=== PATIENT | female | born 1985 | race African-American/Black ===

== ENCOUNTER 2019-02-19 23:26 | Emergency (ER) | payer BC, MEDICAID, OTHER ==
[2019-02-20] MEDS ORDERED: DEXAMETHASONE SOD PHOS INJ 10 MG/1 ML VIAL IM ONE (03:53)
[2019-02-20] MEDS ORDERED: CEPHALEXIN 500 MG CAPSULE PO ONE (03:53)
--- NOTE | 2019-02-20 03:56 | ER Document Report ---
ED General - General Chief Complaint: Insect Bite Stated Complaint: BITE, LEG SWELLING AND BLISTERING Time Seen by Provider: 02/20/19 03:27 Notes: Patient is a 33-year-old female presents with complaint of a insect bite in her left thigh. States she was bit yesterday. She says was bit 3 times in the same area. In the last couple of hours it became swollen and caused what appears to be a large hive of an area of inflammation around the bites. She says is very pruritic. No fevers. No other complaints at this time. TRAVEL OUTSIDE OF THE [place] IN LAST 30 DAYS: No Past Medical History - Social History Smoking Status: Current Every Day Smoker Frequency of alcohol use: Occasional Drug Abuse: None Family History: Reviewed & Not Pertinent Patient has suicidal ideation: No Patient has homicidal ideation: No Renal/ Medical History: Denies: Hx Peritoneal Dialysis Review of Systems - Review of Systems Notes: My Normal Review Basic REVIEW OF SYSTEMS: CONSTITUTIONAL : Denies fever, chills, or sweats. Denies recent illness. RESPIRATORY: Denies cough, cold, or chest congestion. Denies shortness of breath, difficulty breathing, or wheezing. GASTROINTESTINAL: Denies abdominal pain. Denies nausea, vomiting, or diarrhea. MUSCULOSKELETAL: Denies neck or back pain or joint pain or swelling. SKIN: Skin reaction on left lateral thigh. NEUROLOGICAL: Denies sensory or motor loss. ALL OTHER SYSTEMS REVIEWED AND NEGATIVE. Physical Exam - Vital signs Vitals: Temp Pulse Resp BP Pulse Ox 98 F 73 20 137/84 H 97 02/20/19 00:08 02/20/19 00:08 02/20/19 00:08 02/20/19 00:08 02/20/19 00:08 - Notes Notes: General Appearance: Well nourished, alert, cooperative, no acute distress, no obvious discomfort. Vitals: reviewed, See vital signs table. Extremities: strength 5/5 in all extremities, good pulses in all extremities, no swelling or tenderness in the extremities, no edema. Skin: Patient has appears to be an area of bug bite surrounded by a large area of superficial swelling is well demarcated consistent with a localized allergic reaction. There is very pruritic. There is some serosanguineous drainage from the area due to the edema of the skin. The entire area is approximately 10 cm across in diameter. No fluctuance. Bedside ultrasound shows no underlying fluid pocket. Neuro: speech clear, oriented x 3, normal affect, responds appropriately to questions. Course - Re-evaluation Re-evalutation: 02/20/19 07:26 Patient is well-appearing. Looks like she has a localized allergic reaction. She does have some serosanguineous drainage. She has been scratching it. May be some increased erythema right at the center where the bites are. I am not convinced there is secondary infection however she has been scratching and there is is increased erythema and therefore I think is better air on the side of caution placed on Keflex. Patient is agreeable with this. I did give her a shot of Decadron. I encouraged her to take Benadryl for the itching. I encouraged her return to ER if she has spreading redness, increasing swelling, fevers, or if she has any further concerns. Patient agrees with plan and will be discharged home. Dictation of this chart was performed using voice recognition software; therefore, there may be some unintended grammatical errors. - Vital Signs Vital signs: Temp Pulse Resp BP Pulse Ox 97.7 F 72 16 123/59 L 98 02/20/19 04:27 02/20/19 04:27 02/20/19 04:27 02/20/19 04:27 02/20/19 04:27 Discharge - Discharge Clinical Impression: Insect bite Qualifiers: Encounter type: initial encounter Site of insect bite: thigh Laterality: left Qualified Code(s): S70.362A - Insect bite (nonvenomous), left thigh, initial encounter Condition: Good Disposition: HOME, SELF-CARE Additional Instructions: Please follow up with your doctor in Saturday for reevaluation. Please take 25mg of Benadryl every 6 hours as needed for itching. I have prescribed and antibiotic called Keflex to help treat any secondary infection. Please return to the ER if you have spreading redness, fevers, increasing swelling, or have any further concerns. Prescriptions: RX: Cephalexin Monohydrate [Keflex 500 mg Capsule] 500 mg PO BID #9 capsule Forms: Return to Work
[2019-02-20 04:29] VITALS: BP 123/59
== END 2019-02-20 04:40 | disposition home or self-care (01) ==
LOC: ER 23:26
DX: S70.362A Insect bite (nonvenomous), left thigh, initial encounter (principal); W57.XXXA Bitten or stung by nonvenomous insect and other nonvenomous arthropods, initial encounter; F17.200 Nicotine dependence, unspecified, uncomplicated
CPT/HCPCS: 99281; 96372; J1100

== ENCOUNTER 2019-04-12 06:54 | Emergency (ER) | payer BC ==
--- NOTE | 2019-04-12 09:30 | ER Document Report ---
ED General - General Chief Complaint: Breathing Difficulty Stated Complaint: SHORTNESS OF BREATH Time Seen by Provider: 04/12/19 09:28 TRAVEL OUTSIDE OF THE [place] IN LAST 30 DAYS: No - HPI Notes: 34-year-old female to the emergency department with complaints of upper back pain and shortness of breath that began yesterday. She states that every time she tries to take her breath she has intense pain in her back. As a result of this she is been taking small shallow breaths to avoid her back pain hurting her. 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 She denies any chest pain. She denies any cough she denies any leg swelling. She does not have a history of hypertension, diabetes, or hyperlipidemia. She does not have a history of asthma. She has not been running a fever or having chills, nasal congestion, nasal discharge. She has not been recently traveling. She denies unilateral leg swelling. She denies calf pain. She denies oral contraceptive use. She denies history of DVTs. She denies any family history of coagulopathies. Past Medical History - General Information source: Patient - Social History Smoking Status: Never Smoker Frequency of alcohol use: None Drug Abuse: None Family History: Reviewed & Not Pertinent Renal/ Medical History: Denies: Hx Peritoneal Dialysis Review of Systems - Review of Systems Constitutional: denies: Chills, Fever EENT: No symptoms reported Cardiovascular: denies: Chest pain, Dyspnea, Syncope, Dizziness, Lightheaded Respiratory: See HPI, Hurts to breathe, Short of breath. denies: Cough Gastrointestinal: denies: Abdominal pain, Diarrhea, Nausea, Vomiting Musculoskeletal: See HPI, Back pain Physical Exam - Vital signs Vitals: Temp Pulse Resp BP Pulse Ox 98 F 70 22 H 139/85 H 98 04/12/19 06:57 04/12/19 06:57 04/12/19 06:57 04/12/19 06:57 04/12/19 06:57 Interpretation: Hypertensive - General General appearance: Appears well, Alert In distress: None - HEENT Head: Normocephalic, Atraumatic Eyes: Normal Pupils: PERRL - Respiratory Respiratory status: No respiratory distress Chest status: Nontender Breath sounds: Decreased air movement - Decreased air movement throughout mainly because patient is splinting against pain every time she takes a big inspiration.. No: Rales, Rhonchi, Stridor, Wheezing Chest palpation: Normal - Cardiovascular Rhythm: Regular Heart sounds: Normal auscultation Murmur: No - Abdominal Inspection: Normal Distension: No distension Bowel sounds: Normal Tenderness: Nontender Organomegaly: No organomegaly - Back Back: Tender - There is focal tenderness to palpation of the left upper back just on the medial aspect of the scapula and going under it. There is no crepitus or step-off. There is no skin findings. There is no midline tenderness to palpation of the cervical, thoracic, or lumbar spine.. No: CVA tenderness, Vertebra tenderness - Extremities General upper extremity: Normal inspection, Normal ROM, Normal strength, Normal temperature General lower extremity: Normal inspection, Normal ROM, Normal strength, Normal temperature, Michelle's sign - Neurological Neuro grossly intact: Yes Cognition: Normal Orientation: AAOx4 [place] Coma Scale Eye Opening: Spontaneous Loc Coma Scale Verbal: Oriented Loc Coma Scale Motor: Obeys Commands [place] Coma Scale Total: 15 Speech: Normal Motor strength normal: LUE, RUE, LLE, RLE Sensory: Normal - Psychological Associated symptoms: Normal affect, Normal mood - Skin Skin Temperature: Warm Skin Moisture: Dry Skin Color: Normal Course - Re-evaluation Re-evalutation: 04/12/19 11:44 Chest X-Ray 04/12/19 09:29 IMPRESSION: NO ACUTE RADIOGRAPHIC FINDING IN THE CHEST. Impression: Left upper back strain which is causing patient to take shallow breaths and splint against the pain giving her shortness of breath. She has a reassuring EKG. Her chest x-ray is negative. She is not hypoxic. She is not tachycardic. She is PERC negative. Low suspicion for ACS or ED. She has reproducible pain on exam. Will send home with Lidoderm patch, small amount of Ultram, and Robaxin. We will also send home with incentive spirometer. Have encouraged her to return if worsening pain, shortness of breath, chest pain, passing out, fevers, or any other complaints. She agrees with the plan will have her follow with her primary care physician this week. Pain has improved from a 5 out of 5 down to 3 out of 5 after injection of Toradol. - Vital Signs Vital signs: Temp Pulse Resp BP Pulse Ox 98 F 70 22 H 139/85 H 98 04/12/19 06:57 04/12/19 06:57 04/12/19 06:57 04/12/19 06:57 04/12/19 06:57 - Diagnostic Test Radiology reviewed: Image reviewed, Reports reviewed - EKG Interpretation by Me EKG shows normal: Sinus rhythm Rate: Normal Rhythm: NSR Additional EKG results interpreted by me: 04/12/19 11:45 Initial EKG shows a rate of 54 with a sinus arrhythmia. There are no T wave depressions or ST elevations. Repeat EKG has a rate of 65 inches sinus rhythm with arrhythmia. Again there is no ST elevation or T wave inversion. There is no evidence on either EKG for STEMI. QTc is 400. Discharge - Discharge Clinical Impression: Shortness of breath, Elevated blood pressure reading Muscle strain of left upper back Qualifiers: Encounter type: initial encounter Qualified Code(s): S29.012A - Strain of muscle and tendon of back wall of thorax, initial encounter Condition: Stable Disposition: HOME, SELF-CARE Instructions: Upper Back Strain ([facility]) Additional Instructions: Use incentive spirometer as directed. Take medicines as prescribed. May apply heat to the upper back for 20 minutes at a time 3 times a day. Follow-up with primary care without fail this week. Rest at home for the next few days with no lifting greater than a gallon of milk. Return immediately if any worsening shortness of breath, worsening back pain, fevers, chest pain, passing out, or an y other concerns. Prescriptions: Lidocaine [Lidoderm 5% (700 mg) Transdermal Patch] 1 patch TP DAILY #30 adh..patch Methocarbamol [Robaxin 500 mg Tablet] 500 mg PO QID #20 tablet Tramadol HCl [Ultram 50 mg Tablet] 50 mg PO Q6H PRN #9 tab PRN Reason: Forms: Return to Work Referrals: ARNOLDO ROBERTS FNP [Primary Care Provider] - Follow up in 3-5 days
[2019-04-12] MEDS ORDERED: KETOROLAC TROMETHAMINE 60 MG/2 ML SDV IM ONE (09:37)
--- NOTE | 2019-04-12 10:13 | RADIOLOGY REPORT (SQ) ---
EXAM DESCRIPTION: CHEST 2 VIEWS COMPLETED DATE/TIME: 04/12/2019 9:48 am REASON FOR STUDY: chest congestion, SOB COMPARISON: None. EXAM PARAMETERS: NUMBER OF VIEWS: two views TECHNIQUE: Digital Frontal and Lateral radiographic views of the chest acquired. RADIATION DOSE: NA LIMITATIONS: none FINDINGS: LUNGS AND PLEURA: No opacities, masses or pneumothorax. No pleural effusion. MEDIASTINUM AND HILAR STRUCTURES: No masses or contour abnormalities. HEART AND VASCULAR STRUCTURES: Heart normal size. No evidence for failure. BONES: No acute findings. HARDWARE: None in the chest. OTHER: No other significant finding. IMPRESSION: NO ACUTE RADIOGRAPHIC FINDING IN THE CHEST. TECHNICAL DOCUMENTATION: JOB ID: [id number] 2023 [employer]- All Rights Reserved Reading location - IP/workstation name: PATIENT CARE [email or web address]
[2019-04-12] MEDS ORDERED: METHOCARBAMOL 500 MG TABLET PO ONE (11:39)
[2019-04-12] MEDS ORDERED: TRAMADOL HCL 50 MG TABLET PO ONE (11:39)
[2019-04-12 12:35] VITALS: BP 119/71
--- NOTE | 2019-04-13 00:16 | EKG REPORT ---
SEVERITY:- OTHERWISE NORMAL ECG - SINUS ARRHYTHMIA, RATE 46-62 : Confirmed by: Adelita Boyce MD 13-Apr-2019 00:15:42
--- NOTE | 2019-04-13 00:17 | EKG REPORT ---
SEVERITY:- NORMAL ECG - SINUS RHYTHM : Confirmed by: Adelita Boyce MD 13-Apr-2019 00:15:38
== END 2019-04-12 12:46 | disposition home or self-care (01) ==
LOC: ER 06:54
DX: S29.012A Strain of muscle and tendon of back wall of thorax, initial encounter (principal); R06.00 Dyspnea, unspecified; R03.0 Elevated blood-pressure reading, without diagnosis of hypertension; X58.XXXA Exposure to other specified factors, initial encounter
CPT/HCPCS: 93005; 99283; 96372; 71046; 93010; J1885